=== PATIENT | female | born 1960 | race Caucasian/White ===

== ENCOUNTER 2019-12-04 01:13 | Inpatient (IN) | payer MEDICAID, SELFPAY ==
[2019-12-04] VITALS (8 sets, daily range): BP systolic 118–181; BP diastolic 72–124; PULSE 78–130; RESP 16–87; TEMP 36.6–36.9; O2SAT 90–98; BMI 24.1
[2019-12-04 01:33] LABS: Basophils % 0.5 %; Eosinophils # 0.2 10^3/uL (0.0-0.8); Eosinophils % 2.2 %; Hematocrit 41.2 % (37.0-47.0); Hemoglobin 13.2 g/dL (11.5-15.3); Lymphocytes # 2.1 10^3/uL (0.8-4.8); Mean Corpuscular Hemoglobin 28.9 pg (28.0-34.0); Mean Corpuscular Volume 90.2 fL (81-99); Mean Platelet Volume 8.7 fL (7.4-10.4); Monocytes # 0.7 10^3/uL (0.2-0.9); Monocytes % 8.7 %; Neutrophils # 4.6 10^3/uL (1.8-7.7); Neutrophils % 60.2 %; Nucleated Red Blood Cells % 0 %; Platelet Count 438 10^3/cmm (130-400); Red Blood Count 4.57 10^6/uL (4.1-5.3); Red Cell Distribution Width 12.5 % (12.1-15.1); White Blood Count 7.6 10^3/uL (4.0-10.0)
--- NOTE | 2019-12-04 01:48 | PC.NURSE ---
pt yelling and crying at this time. ' wants to leave this life and not come back'
--- NOTE | 2019-12-04 01:53 | PC.NURSE ---
pt states 'she wants to take her dog a .'
--- NOTE | 2019-12-04 01:57 | PC.NURSE ---
Patient changed into paper scrubs. House sup notified at this time.
[2019-12-04 01:58] LABS: Alanine Aminotransferase 22 U/L (0-33); Albumin Level 4.4 g/dL (3.5-5.2); Alkaline Phosphatase 97 IU/L (35-105); Anion Gap 18.8 (5-19); Aspartate Amino Transferase 24 U/L (0-32); Blood Urea Nitrogen 12 mg/dL (6-20); Calcium 10.3 mg/Dl (8.6-10.0); Carbon Dioxide 22 mmol/L (22-29); Chloride 99 mmol/L (98-107); Globulin 3.7 g/dL (1.3-4.6); Glomerular Filtration Rate 127.2 mL/min (90-130); Glucose 118 mg/dL (74-109); Potassium 3.8 mmol/L (3.5-5.1); Sodium 136 mmol/L (136-145); Thyroid Stimulating Hormone 1.49 uIU/mL (0.27-4.20); Total Bilirubin 0.3 mg/dL (0.15-1.2); Total Protein 8.1 g/dL (6.6-8.7)
--- NOTE | 2019-12-04 02:00 | PC.NURSE ---
pt states ' I knew not to talk to no body, I knew to just do it'
[2019-12-04 02:04] LABS: Acetaminophen < 5.0 ug/mL (10-30); Alcohol Level < 10 mg/dL (0-10); Salicylate < 0.3 mg/dL (3-10)
--- NOTE | 2019-12-04 02:16 | ED_ITS ---
Entered by Teena Laguna, acting as scribe for Chan Benavides DO Dec 04, 2019 01:13 HPI - Psych General: Chief Complaint: Psychiatric Symptoms Stated Complaint: SI Time Seen by Provider: 12/04/19 02:17 Source: patient and EMS Mode of arrival: EMS History of Present Illness: HPI Narrative: 59 y/o female presents to the ED with complaint of suicidal ideations. Pt states she has a hx of SI but this most recent episode started 1 week ago. Pt states she has not taken her psych medications since April 2019. She states she hates people because they are cruel and she hates herself. Pt states she has degenerative disk dz and she is constantly in pain. Pt states she has used meth and ETOH. MD complaint: suicidal ideation and feels depressed Onset (ago): week(s) (1) Duration: constant History of same: Yes Relieving factors: none Exacerbating factors: alcohol and drug use Context: recent drug abuse (Methamphetamines ) Associated psychiatric symptoms: depression and suicidal ideation Associated symptoms: Reports depression and suicidal ideation; Deny auditory hallucinations or visual hallucinations If self harm: admits thoughts of self harm and has plan Review of Systems Const: Denies: fever or chills Eyes: Denies: change in vision or blurry vision ENMT: Denies: painful swallowing, swelling of lips/tongue, bleeding gums, dental pain, Change in hearing, nose bleeds, post nasal drip or facial/sinus pain Card: Denies: chest pain, palpitations, irregular heart rhythm, edema, swelling of feet/ankles, shortness of breath on exertion or shortness of breath when lying down Resp: Reports: wheezing (bilaterally) GI: Denies: abdominal pain, nausea, vomiting, rectal pain, blood in stool or black tarry stool : Denies: painful urination, urinary frequency, urinary urgency or blood in urine Musc: Reports: neck pain; Denies: redness or joint warmth Skin/Breast: Denies: rash, itching or redness Neuro: Denies: headache, dizziness, vertigo, confusion or seizure-like activity Psych: Reports: anxiety, depression and suicidal ideation; Denies: visual hallucinations or auditory hallucinations PFSH ED PFSH: Statuses (acute, chronic, etc) shown below reflect problem list status as previously entered and may not be historically accurate Social History Smoking and tobacco status: current every day smoker Physical Exam Const: COMMON NORMALS: alert GENERAL APPEARANCE: well developed ORIENTATION/CONSCIOUSNESS: Yes awake, Yes oriented to person, Yes oriented to place and Yes oriented to time HENMT: COMMON NORMALS: normocephalic, external ears normal, external nose normal and moist oral mucous membranes HEAD & SCALP: normocephalic; no scalp tenderness FACE & SINUS: normal facial exam NOSE: external nose normal and no nasal discharge EXTERNAL EAR: Yes external ears normal MOUTH: tongue normal THROAT: posterior oropharynx normal; no peritonsillar mass Eye: COMMON NORMALS: PERRL, EOMs intact bilaterally and conjunctivae normal EYELID: eyelids normal CONJUNCTIVA: Yes conjunctivae normal PUPIL: Yes PERRL Neck/C-Spine: GENERAL: No tracheal deviation CERVICAL SPINE: Yes pain with cervical ROM Chest: COMMONS NORMALS: inspection of chest normal CHEST: Yes symmetrical chest wall rise and No tenderness Resp: EFFORT & INSPECTION: No tachypneic, No respiratory distress, No retractions, No uses accessory muscles and No tracheal deviation AUSCULTATION: no rhonchi and wheezes Cardio: COMMON NORMALS: regular rate and regular rhythm RATE: regular rate RHYTHM: regular rhythm HEART SOUNDS: no murmurs PERIPHERAL PULSES: radial pulses present GI: INSPECTION: No abdominal distension AUSCULTATION: No hyperactive bowel sounds and No hypoactive bowel sounds PALPATION: No tender, No guarding and No rigid PERCUSSION: no dullness to percussion and no tympanic to percussion : COMMON NORMALS: Yes no CVA tenderness BLADDER/KIDNEY EXAM: Yes no CVA tenderness Back/Pelvis: COMMON NORMALS: no CVA tenderness Neuro: SENSORIUM/ORIENTATION: Yes alert, Yes oriented to person, Yes oriented to place and Yes oriented to time Psych: COMMON NORMALS: mental status grossly normal and speech normal SPEECH: Yes normal speech Skin: GENERAL SKIN EXAM: other (evidence of IV use) MDM - Psych Lab Data: Labs: Lab Results 12/04/19 12/04/19 12/04/19 Range/Units 01:18 01:18 01:53 WBC 7.6 (4.0-10.0) 10^3/ uL RBC 4.57 (4.1-5.3) 10^6/u L Hgb 13.2 (11.5-15.3) g/dL Hct 41.2 (37.0-47.0) % MCV 90.2 (81-99) fL MCH 28.9 (28.0-34.0) pg MCHC 32.0 (30.0-36.0) g/dL RDW 12.5 (12.1-15.1) % Plt Count 438 H (130-400) 10^3/c mm MPV 8.7 (7.4-10.4) fL Neut % (Auto) 60.2 % Lymph % (Auto) 28.0 % Castro % (Auto) 8.7 % Eos % (Auto) 2.2 % Baso % (Auto) 0.5 % Neut # (Auto) 4.6 (1.8-7.7) 10^3/u L Lymph # (Auto) 2.1 (0.8-4.8) 10^3/u L Castro # (Auto) 0.7 (0.2-0.9) 10^3/u L Eos # (Auto) 0.2 (0.0-0.8) 10^3/u L Baso # (Auto) 0.0 (0.0-0.1) 10^3/u L Nucleated RBC % (a uto) 0 % Nucleated RBCs # 0.0 /100WBC Sodium 136 (136-145) mmol/L Potassium 3.8 (3.5-5.1) mmol/L Chloride 99 (98-107) mmol/L Carbon Dioxide 22 (22-29) mmol/L Anion Gap 18.8 (5-19) BUN 12 (6-20) mg/dL Creatinine 0.5 (0.5-0.9) mg/dL GFR Calculation 127.2 (90-130) mL/min Glucose 118 H (74-109) mg/dL Calcium 10.3 H (8.6-10.0) mg/Dl Total Bilirubin 0.3 (0.15-1.2) mg/dL AST 24 (0-32) U/L ALT 22 (0-33) U/L Alkaline Phosphata se 97 (35-105) IU/L Total Protein 8.1 (6.6-8.7) g/dL Albumin 4.4 (3.5-5.2) g/dL Globulin 3.7 (1.3-4.6) g/dL TSH 1.49 (0.27-4.20) uIU/ mL Urine Color Colorless (Yellow) Urine Appearance Sl cloudy A (CLEAR) Urine pH 5 (5-7) Ur Specific Gravit y 1.015 (1.005-1.030) Urine Protein Neg (Negative) Urine Glucose (UA) Norm (Normal) Urine Ketones Negative (Negative) Urine Occult Blood Neg (Negative) Urine Nitrate Negative (Negative) Urine Bilirubin Neg (NEGATIVE) Urine Urobilinogen 1 H (Negative) mg/dL Ur Leukocyte Ana ase Trace H (Negative) Urine RBC 0-4 H (0-2) /hpf Urine WBC 10-15 H (0-5) /hpf Ur Squamous Epith Cells 5-10 H (0-5) Urine Bacteria 2+ H (NONE) Salicylates < 0.3 L (3-10) mg/dL Urine Opiates Scre en (Negative) ng/mL Acetaminophen < 5.0 L (10-30) ug/mL Ur Barbiturates Sc reen (Negative) ng/mL Ur Phencyclidine S crn (Negative) ng/mL Ur Amphetamines Sc reen (Negative) ng/mL U Benzodiazepines Scrn (Negative) ng/mL Urine Cocaine Scre en (Negative) ng/mL U Marijuana (THC) Screen (Negative) ng/mL Ethyl Alcohol < 10 (0-10) mg/dL 12/04/19 Range/Units 01:53 WBC (4.0-10.0) 10^3/ uL RBC (4.1-5.3) 10^6/u L Hgb (11.5-15.3) g/dL Hct (37.0-47.0) % MCV (81-99) fL MCH (28.0-34.0) pg MCHC (30.0-36.0) g/dL RDW (12.1-15.1) % Plt Count (130-400) 10^3/c mm MPV (7.4-10.4) fL Neut % (Auto) % Lymph % (Auto) % Castro % (Auto) % Eos % (Auto) % Baso % (Auto) % Neut # (Auto) (1.8-7.7) 10^3/u L Lymph # (Auto) (0.8-4.8) 10^3/u L Castro # (Auto) (0.2-0.9) 10^3/u L Eos # (Auto) (0.0-0.8) 10^3/u L Baso # (Auto) (0.0-0.1) 10^3/u L Nucleated RBC % (a uto) % Nucleated RBCs # /100WBC Sodium (136-145) mmol/L Potassium (3.5-5.1) mmol/L Chloride (98-107) mmol/L Carbon Dioxide (22-29) mmol/L Anion Gap (5-19) BUN (6-20) mg/dL Creatinine (0.5-0.9) mg/dL GFR Calculation (90-130) mL/min Glucose (74-109) mg/dL Calcium (8.6-10.0) mg/Dl Total Bilirubin (0.15-1.2) mg/dL AST (0-32) U/L ALT (0-33) U/L Alkaline Phosphata se (35-105) IU/L Total Protein (6.6-8.7) g/dL Albumin (3.5-5.2) g/dL Globulin (1.3-4.6) g/dL TSH (0.27-4.20) uIU/ mL Urine Color (Yellow) Urine Appearance (CLEAR) Urine pH (5-7) Ur Specific Gravit y (1.005-1.030) Urine Protein (Negative) Urine Glucose (UA) (Normal) Urine Ketones (Negative) Urine Occult Blood (Negative) Urine Nitrate (Negative) Urine Bilirubin (NEGATIVE) Urine Urobilinogen (Negative) mg/dL Ur Leukocyte Ana ase (Negative) Urine RBC (0-2) /hpf Urine WBC (0-5) /hpf Ur Squamous Epith Cells (0-5) Urine Bacteria (NONE) Salicylates (3-10) mg/dL Urine Opiates Scre en Negative (Negative) ng/mL Acetaminophen (10-30) ug/mL Ur Barbiturates Sc reen Negative (Negative) ng/mL Ur Phencyclidine S crn Negative (Negative) ng/mL Ur Amphetamines Sc reen Positive H (Negative) ng/mL U Benzodiazepines Scrn Negative (Negative) ng/mL Urine Cocaine Scre en Negative (Negative) ng/mL U Marijuana (THC) Screen Positive H (Negative) ng/mL Ethyl Alcohol (0-10) mg/dL Discharge Plan Discharge Patient Disposition: Admitted As Inpatient Admit Provider: Salty Jerome Clinical Impression: Acute psychosis Condition: Stable Discharge Date/Time: 12/04/19 03:45 Coding Level of Care Code ED Software Project Lead for Irene Goodman The documentation recorded by the Jase malin Ashley, accurately reflects the service I personally performed and the decisions made by Kennedy terry Jeremy John, DO Dec 04, 2019 01:13
[2019-12-04 02:18] LABS: Add Urine Microscopic? YES; Bilirubin Urine Neg (NEGATIVE); Blood Urine Neg (Negative); Glucose Urine UA Norm (Normal); Ketones Urine Negative (Negative); Leukocyte Esterase Urine Trace (Negative); Nitrate Urine Negative (Negative); Protein Urine Neg (Negative); Specific Gravity, Urine 1.015 (1.005-1.030); Urine Color Colorless (Yellow); Urobilinogen Urine 1 mg/dL (Negative); pH Urine 5 (5-7)
[2019-12-04 02:19] LABS: Add Urine Culture? No; Bacteria Urine 2+; RBC Urine 0-4 /hpf (0-2)
[2019-12-04 02:21] LABS: Barbiturates Screen Urine Negative (Negative); Benzodiazepines Screen Urine Negative (Negative); Cocaine Screen Urine Negative (Negative); Opiate Screen Urine Negative (Negative); PCP Screen Urine Negative (Negative); THC Screen Urine Positive (Negative)
[2019-12-04] MEDS: LORazepam 2 mg/mL INJ 1 mL IM (02:38)
[2019-12-04 02:39] LABS: Amphetamines Screen Urine Positive (Negative)
--- NOTE | 2019-12-04 02:39 | PC.NURSE ---
patient agitated, advised dr painter, verbal order for ativan 2 mg IM now, verbal verification obtained
--- NOTE | 2019-12-04 08:30 | PC.ADMIT ---
[address] Admission Note: The patient,Dedra Melo,59 y/o, was given written information regarding hospital policies, unit procedures and contact persons. Patient's smoking status: current every day smoker. Vital Signs - 8 hr 12/04/19 01:13 12/04/19 03:43 12/04/19 04:04 Temperature 98.4 F 98.1 F 98.0 F Pulse Rate 78 Pulse Rate [Apical] 105 H 130 H Respiratory Rate 18 87 H 16 Blood Pressure 129/87 Blood Pressure [Left Arm] 181/124 118/72 Pulse Oximetry 92 90 98 12/04/19 04:12 12/04/19 06:00 Temperature 98.0 F 98.1 F Pulse Rate Pulse Rate [Apical] 130 H 89 Respiratory Rate 16 17 Blood Pressure Blood Pressure [Left Arm] 118/72 144/88 Pulse Oximetry 98 96
--- NOTE | 2019-12-04 12:17 | PM.NHP ---
Providers/Chief Complaint Admitting Physician: Salty Jerome MD Chief Complaint: SI HPI NPU History of Present Illness Dedra Melo is a 59 year old female who presents today reporting that she had a rough time the last 10 days. She reports that she is from this area or at least had been here for about a decade. She reports that she came here when she was 30 and left when she was about 40. She has grandchildren whom she has moved to be close to that took her out of the area. She had been struggling recently and a friend recommended that she moved back and that she could stay with that friend. Unfortunately when she got there she reports there was rapid drug use which was not conducive to her recovery and put her a really bad situation as she barely had the resources to get here and certainly does not have the resources to figure out the resolution to being here alone. She reports that she did use during this time, but that is not a direction she wants to go back to and it started causing her to feel depressed, suicidal and unclear as to how to move forward. She reports that this is probably the fifth hospitalization in her life with her first one occurring when she was about 20 years old. She answered many questions with I don't know and seemed fairly frazzled and confused at times. She does not recall the circumstances related to her admission when she was 20 years old. She endorses smoking cigarettes, drinking alcohol from time to time and smoking marijuana in addition to other drugs but denies ever having major swaths of her life that were lost to addiction. She reports that she has had medications in the past that were helpful. We discussed the risk benefits and alternatives of restarting 2 of those medications and she understood and agreed to proceed as documented in his note. Psychiatric history: As above. Substance abuse history: As above. UDS was positive for amphetamines and marijuana. Family history: She endorses mental health and addiction issues in her family. Developmental history: She denies any knowledge of any significant issues during her mom's or delivery with her. She reports that she learn to walk and talk to medical developmental milestones on time. She denies having speech therapy but did endorse having some learning difficulties. Psychosocial history: She reports that her parents were together when she was born. She endorses elevated split up at some point. She does have siblings. She reports that her childhood was tough at times. She did not graduate from high school nor did she get her GED. She endorses being heterosexual relationship for several years. She has a son and daughter. Her son is 30 and her daughters about 40. She also has grandchildren. She never been in the and she endorses being [employer]. She endorses that her longest job was about a year. She is currently homeless. Legal history: She reports that she has been in residential before for several days. Meds NPU Home Medications Medication Instructions Recorded Confirmed Type No Known Home Medications 12/04/19 12/04/19 History Allergies Allergy/AdvReac Type Severity Reaction Status Date / Time Penicillins Allergy ALGY-Swell Verified 12/04/19 01:27 Lip/Tongue/Throat PFSH NPU PFSH: Statuses (acute, chronic, etc) shown below reflect problem list status as previously entered and may not be historically accurate Social History Smoking and tobacco status: current every day smoker Mental Status Exam MSE Comments: This is a well-nourished well-developed older appearing white female with adequate dressed, grooming and eye contact. Some tremulousness. Otherwise no abnormal movements except for psychomotor retardation. Cooperative with exam in mild distress. Speech was decreased rate and volume and shaky. Mood described as depressed, affect congruent. Thought process organized. Thought content: Patient denied any homicidal ideation but did endorse having suicidal ideation, there were no delusions reported or noted, she denied any auditory or visual hallucinations. Attention and concentration were intact and memory appeared mostly reliable, but none were formally tested. She is alert and oriented ?3. Insight and judgment are limited. Vitals/I&O/Wt Last Vital Signs Temp 98.1 F 12/04/19 06:00 Pulse 89 12/04/19 06:00 Resp 17 12/04/19 06:00 BP 144/88 12/04/19 06:00 Pulse Ox 96 12/04/19 06:00 Weight last 48 hrs Weight 65.998 kg Weight 65.771 kg A&P Assessment and plan (1) Depressive disorder: This is a 59-year-old white female with a long history of mental health treatment and addiction who presents off of her medication with recent use with significant psychosocial challenges. 1. Continue current medications. Except: 2. Initiate Prozac 20 mg by mouth every morning and Abilify 10 mg by mouth every morning. 3. Encourage individual, group therapy. 4. Continue every 15 minute checks for safety. 5. Encourage discharge to sober living treatment/aftercare at the highest level of care to which she is willing to commit. Status: Acute Code(s): F32.9 - Major depressive disorder, single episode, unspecified (2) Methamphetamine addiction: Status: Acute Code(s): F15.20 - Other stimulant dependence, uncomplicated (3) Cannabis use disorder, moderate, dependence: Status: Acute Code(s): F12.20 - Cannabis dependence, uncomplicated Involuntary Hold Information 96 Hour Hold: 96 Hour Involuntary Admission: No Attestations NPU Medical Necessity Statement*: Inpatient hospitalization is medically necessary and the clinically appropriate intervention at this time. She will be in the hospital for over 2 midnights. We will initiate medications, monitor and titrate to effect. Likely length of stay 3-5 days. Coding Level of Care Code Acute Estate Manager for Irene Goodman Diagnoses Depressive disorder F32.9 Methamphetamine addiction F15.20 Cannabis use disorder, moderate, dependence F12.20
[2019-12-04] MEDS: fluoxetine 20 mg Capsule PO (15:12)
[2019-12-04] MEDS: ARIPiprazole 10 mg Tablet PO (15:12)
[2019-12-05 05:55] VITALS: BP 156/95; PULSE 86; RESP 16; TEMP 36.5; O2SAT 93
[2019-12-05] MEDS: fluoxetine 20 mg Capsule PO (08:19)
[2019-12-05] MEDS: ARIPiprazole 10 mg Tablet PO (08:19)
[2019-12-05] MEDS: acetaminophen 325 mg Tablet 650 MG PO (11:05)
--- NOTE | 2019-12-05 13:28 | PM.NPN ---
Subjective NPU Subjective: Interval history: Dedra presents today reporting she is feeling no specific side effects of the medication but she could not endorse feeling better. She was clearly upset and feeling some sort of way during the interview. She reports that she just does not know what to do. She is down here and she feels afraid to go home meaning the place that she is living here and feels that going back to where she is coming from was also not an option. She feels like she is between a rock and hard space. She reports that she is not sleeping great still feels really depressed. Mental Status Exam MSE Comments: This is a well-nourished well-developed older appearing white female with adequate dressed, grooming and eye contact. Some continued tremulousness. Otherwise no abnormal movements except for psychomotor retardation. Cooperative with exam in mild distress. Speech was decreased rate and volume. Mood described as depressed, affect congruent. Thought process organized. Thought content: Patient denied any homicidal ideation but did endorse having suicidal ideation, there were no delusions reported or noted, she denied any auditory or visual hallucinations. Attention and concentration were intact and memory appeared mostly reliable, but none were formally tested. She is alert and oriented ?3. Insight and judgment are limited. Vitals/I&O/Wt Last Vital Signs Temp 97.7 F 12/05/19 05:55 Pulse 86 12/05/19 05:55 Resp 16 12/05/19 05:55 BP 156/95 12/05/19 05:55 Pulse Ox 93 12/05/19 05:55 Weight last 48 hrs Weight 65.998 kg Weight 65.771 kg A&P Additional A&P Information Additional A&P Information: This is a 59-year-old white female with a long history of mental health treatment and addiction who presents off of her medication with recent use with significant psychosocial challenges. 1. Continue current medications. Except: 2. Consider increasing the Abilify to 15 mg by mouth every morning tomorrow or Thursday 3. Encourage individual, group therapy. 4. Continue every 15 minute checks for safety. 5. Encourage discharge to sober living treatment/aftercare at the highest level of care to which she is willing to commit. Involuntary Hold Information 96 Hour Hold: 96 Hour Involuntary Admission: No Attestations NPU Medical Necessity Statement*: Inpatient hospitalization is medically necessary and the clinically appropriate intervention at this time. We will monitor medications and titrate to effect. Likely length of stay 3-5 days. Coding Level of Care Code Acute Forensic Ballistics Expert for Irene Goodman
[2019-12-05 14:00] VITALS: BP 122/83; PULSE 107; RESP 18; TEMP 36.8; O2SAT 93
[2019-12-05 20:01] VITALS: BP 152/97; PULSE 92; RESP 16; TEMP 36.3; O2SAT 93
[2019-12-06] MEDS: acetaminophen 325 mg Tablet 650 MG PO ×2 (05:40→20:35)
[2019-12-06 05:55] VITALS: BP 136/87; PULSE 109; RESP 12; TEMP 36.7; O2SAT 95
[2019-12-06] MEDS: fluoxetine 20 mg Capsule PO (08:21)
[2019-12-06] MEDS: ARIPiprazole 10 mg Tablet PO (08:21)
--- NOTE | 2019-12-06 13:08 | PM.NPN ---
Subjective NPU Subjective: Interval history: Dedra was up and interactive for the first time in her hospitalization really less shaky and more engaging. She is agreeable to the increase in her Abilify to 15 mg after discussion of the risks, benefits and alternatives and she understood and agreed to proceed as is documented in this note. We discussed the possibility of increasing her Prozac in the next day or so. She reports that she is sleeping too much and that she is eating okay. Mental Status Exam MSE Comments: This is a well-nourished well-developed older appearing white female with adequate dressed, grooming and eye contact. With improvement in tremulousness. Otherwise no abnormal movements except for lessening psychomotor retardation. Cooperative with exam in mild distress. Speech was decreased rate and volume. Mood described as I'm here, affect congruent and less subdued. Thought process organized. Thought content: Patient denied any homicidal ideation but did endorse improvement in her suicidal ideation, there were no delusions reported or noted, she denied any auditory or visual hallucinations. Attention and concentration were intact and memory appeared reliable, but none were formally tested. She is alert and oriented ?3. Insight and judgment are improving. Vitals/I&O/Wt Last Vital Signs Temp 98.2 F 12/06/19 20:37 Pulse 84 12/06/19 20:37 Resp 19 H 12/06/19 20:37 BP 156/95 12/06/19 20:37 Pulse Ox 93 12/06/19 20:37 A&P Additional A&P Information This is a 59-year-old white female with a long history of mental health treatment and addiction who presents off of her medication with recent use with significant psychosocial challenges. 1. Continue current medications. Except: 2. Increase Abilify to 15 mg 3. Encourage individual, group therapy. 4. Continue every 15 minute checks for safety. 5. Encourage discharge to sober living treatment/aftercare at the highest level of care to which she is willing to commit. Involuntary Hold Information 96 Hour Hold: 96 Hour Involuntary Admission: No Attestations NPU Medical Necessity Statement*: Inpatient hospitalization is medically necessary and the clinically appropriate intervention at this time. We will monitor medications and titrate to effect. Likely length of stay 2-4 days. Coding Level of Care Code Acute Alligator Trapper for Irene Goodman
[2019-12-06 13:55] VITALS: BP 164/94; PULSE 78; RESP 20; TEMP 36.7; O2SAT 95
[2019-12-06] MEDS: ARIPiprazole 10 mg Tablet 5 MG PO (17:15)
[2019-12-06 20:37] VITALS: BP 156/95; PULSE 84; RESP 19; TEMP 36.8; O2SAT 93
--- NOTE | 2019-12-07 06:23 | PC.NURSE ---
RN Note: patient complained of having back pain. Sitting up in bed. Stated it was her lower back. Tylenol offered and patient stated she needed something stronger for her pain. Stated she did not want any tylenol or Ibuprofen. Laid back down. Will continue to monitor patient for safety and behavior via 15 minute checks.
[2019-12-07 06:29] VITALS: BP 166/106; PULSE 89; RESP 22; TEMP 36.6; O2SAT 97
[2019-12-07] MEDS: ARIPiprazole 30 mg Tablet 15 MG PO (08:39)
[2019-12-07] MEDS: fluoxetine 20 mg Capsule PO (08:39)
--- NOTE | 2019-12-07 11:38 | P.PN_ITS ---
Subjective NPU Subjective: Interval history: Dedra continues to she will increased activity and functionality. We discussed the possible increase in Prozac and the side of the hold at this point. She is tolerating the increase in the Abilify without issue. We began discussions about discharge. She is aware that this designer/writer will not be here tomorrow but that Dr. Feldman will be able to manage things working with the treatment team. She denied any significant issues and was open to the possibility of discharge tomorrow or in the next couple days. Mental Status Exam MSE Comments: This is a well-nourished well-developed older appearing white female with adequate dressed, grooming and eye contact. With improvement in tremulousness. Otherwise no abnormal movements except for improving psychomotor retardation. Cooperative with exam in no acute distress. Speech was more normal rate and volume. Mood described as better, affect congruent. Thought process organized. Thought content: Patient denied any suicidal or homicidal ideation, there were no delusions reported or noted, she denied any auditory or visual hallucinations. Attention and concentration were intact and memory appeared reliable, but none were formally tested. She is alert and oriented ?3. Insight and judgment are improving. Vitals/I&O/Wt Last Vital Signs Data NPU : 12/04/19 01:18 12/04/19 01:18 A&P Additional A&P Information This is a 59-year-old white female with a long history of mental health treatment and addiction who presents off of her medication with recent use with significant psychosocial challenges. 1. Continue current medications. 2. Encourage individual, group therapy. 3. Continue every 15 minute checks for safety. 4. Encourage discharge to sober living treatment/aftercare at the highest level of care to which she is willing to commit. Involuntary Hold Information 96 Hour Hold: 96 Hour Involuntary Admission: No Attestations NPU Medical Necessity Statement*: Inpatient hospitalization is medically necessary and the clinically appropriate intervention at this time. We will monitor medications and titrate to effect. Likely length of stay 1-3 days. Coding Level of Care Code Acute Rental Sales Associate for Irene Goodman
[2019-12-07 14:00] VITALS: BP 125/87; PULSE 102; RESP 18; TEMP 36.8; O2SAT 94
[2019-12-07] MEDS: acetaminophen 325 mg Tablet 650 MG PO (14:40)
[2019-12-07 19:53] VITALS: BP 149/89; PULSE 76; RESP 18; TEMP 36.5; O2SAT 94
[2019-12-08] MEDS: acetaminophen 325 mg Tablet 650 MG PO ×2 (02:21→12:06)
[2019-12-08 06:00] VITALS: BP 187/121; PULSE 92; RESP 20; TEMP 36.9; O2SAT 97
[2019-12-08] MEDS: fluoxetine 20 mg Capsule PO (08:30)
[2019-12-08] MEDS: ARIPiprazole 30 mg Tablet 15 MG PO (08:30)
--- NOTE | 2019-12-08 08:37 | P.PN_ITS ---
Subjective NPU Subjective: Interval history: Dedra was up and interactive for the first time in her hospitalization really less shaky and more engaging. She is agreeable to the increase in her Abilify to 15 mg after discussion of the risks, benefits and alternatives and she understood and agreed to proceed as is documented in this note. We discussed the possibility of increasing her Prozac in the next day or so. She reports that she is sleeping too much and that she is eating okay. Mental Status Exam MSE Comments: This is a well-nourished well-developed older appearing white female with adequate dressed, grooming and eye contact. With improvement in tremulousness. Otherwise no abnormal movements except for lessening psychomotor retardation. Cooperative with exam in mild distress. Speech was decreased rate and volume. Mood described as I'm here, affect congruent and less subdued. Thought process organized. Thought content: Patient denied any homicidal ideation but did endorse improvement in her suicidal ideation, there were no delusions reported or noted, she denied any auditory or visual hallucinations. Attention and concentration were intact and memory appeared reliable, but none were formally tested. She is alert and oriented ?3. Insight and judgment are improving. Cognition: Patient Appearance: Appears Older than Age and Disheveled/Poor Hygiene Level of Consciousness: Awake, Alert, Appropriate and Follows Commands Patient Cognition Impaired: No Ability to Follow Directions: Excellent Patient Orientation (long list): Person and Place Comprehension Ability: No Impairment Hallucination Type: None Delusion Description: Not Present Thought Process: Appropriate Affect: Affect Description: Anxious Depressive Symptoms: Crying Spells, Difficulty Sleeping, Feelings of Worthlessness, Hopelessness, Insomnia, Loss of Interest in Activities, Low Self Esteem, Recurrent Thoughts of or Suicide and Unhappiness Behavior: Patient Behavior: Appropriate Speech Pattern: Appropriate and Clear Vitals/I&O/Wt Last Vital Signs Temp 98.5 F 12/08/19 06:00 Pulse 92 12/08/19 06:00 Resp 20 H 12/08/19 06:00 BP 187/121 12/08/19 06:00 Pulse Ox 97 12/08/19 06:00 A&P Assessment and plan (1) Depressive disorder: This is a 59-year-old white female with a long history of mental health treatment and addiction who presents off of her medication with recent use with significant psychosocial challenges. 1. Continue current medications. Except: 2. Initiate Prozac 20 mg by mouth every morning and Abilify 10 mg by mouth every morning. 3. Encourage individual, group therapy. 4. Continue every 15 minute checks for safety. 5. Encourage discharge to sober living treatment/aftercare at the highest level of care to which she is willing to commit. Status: Acute Code(s): F32.9 - Major depressive disorder, single episode, unspecified (2) Methamphetamine addiction: Status: Acute Code(s): F15.20 - Other stimulant dependence, uncomplicated (3) Cannabis use disorder, moderate, dependence: Status: Acute Code(s): F12.20 - Cannabis dependence, uncomplicated Additional A&P Information This is a 59-year-old white female with a long history of mental health treatment and addiction who presents off of her medication with recent use with significant psychosocial challenges. 1. Continue current medications. Except: 2. Increase Abilify to 15 mg 3. Encourage individual, group therapy. 4. Continue every 15 minute checks for safety. 5. Encourage discharge to sober living treatment/aftercare at the highest level of care to which she is willing to commit. 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
[2019-12-08 14:00] VITALS: BP 139/96; PULSE 122; RESP 18; TEMP 36.7; O2SAT 96
[2019-12-08 15:53] VITALS: BP 129/87; PULSE 78; RESP 18; TEMP 36.7; O2SAT 96
[2019-12-08 16:12] VITALS: BP 129/87; PULSE 78; RESP 18; TEMP 36.7; O2SAT 96
--- NOTE | 2019-12-08 17:16 | PM.NDC ---
Diagnoses at Discharge Discharge Diagnosis (1) Depressive disorder: Status: Acute Problem details: Dedra Melo is a 59 year old female who presents today reporting that she had a rough time the last 10 days. She reports that she is from this area or at least had been here for about a decade. She reports that she came here when she was 30 and left when she was about 40. She has grandchildren whom she has moved to be close to that took her out of the area. She had been struggling recently and a friend recommended that she moved back and that she could stay with that friend. Unfortunately when she got there she reports there was rapid drug use which was not conducive to her recovery and put her a really bad situation as she barely had the resources to get here and certainly does not have the resources to figure out the resolution to being here alone. She reports that she did use during this time, but that is not a direction she wants to go back to and it started causing her to feel depressed, suicidal and unclear as to how to move forward. She reports that this is probably the fifth hospitalization in her life with her first one occurring when she was about 20 years old. She answered many questions with I don't know and seemed fairly frazzled and confused at times. She does not recall the circumstances related to her admission when she was 20 years old. She endorses smoking cigarettes, drinking alcohol from time to time and smoking marijuana in addition to other drugs but denies ever having major swaths of her life that were lost to addiction. She reports that she has had medications in the past that were helpful. We discussed the risk benefits and alternatives of restarting 2 of those medications and she understood and agreed to proceed as documented in his note. Psychiatric history: As above. Substance abuse history: As above. UDS was positive for amphetamines and marijuana. Family history: She endorses mental health and addiction issues in her family. Developmental history: She denies any knowledge of any significant issues during her mom's or delivery with her. She reports that she learn to walk and talk to medical developmental milestones on time. She denies having speech therapy but did endorse having some learning difficulties. Psychosocial history: She reports that her parents were together when she was born. She endorses elevated split up at some point. She does have siblings. She reports that her childhood was tough at times. She did not graduate from high school nor did she get her GED. She endorses being heterosexual relationship for several years. She has a son and daughter. Her son is 30 and her daughters about 40. She also has grandchildren. She never been in the and she endorses being Rastafarian. She endorses that her longest job was about a year. She is currently homeless. Legal history: She reports that she has been in [facility] before for several days. Social History Smoking and tobacco status: current every day smoker A&P Assessment and plan (1) Depressive disorder: This is a 59-year-old white female with a long history of mental health treatment and addiction who presents off of her medication with recent use with significant psychosocial challenges. 1. Continue current medications. Except: 2. Initiate Prozac 20 mg by mouth every morning and Abilify 10 mg by mouth every morning. 3. Encourage individual, group therapy. 4. Continue every 15 minute checks for safety. 5. Encourage discharge to sober living treatment/aftercare at the highest level of care to which she is willing to commit. Status: Acute Code(s): F32.9 - Major depressive disorder, single episode, unspecified (2) Methamphetamine addiction: Status: Acute Code(s): F15.20 - Other stimulant dependence, uncomplicated (3) Cannabis use disorder, moderate, dependence: Status: Acute Code(s): F12.20 - Cannabis dependence, uncomplicated (2) Methamphetamine addiction: Status: Acute (3) Cannabis use disorder, moderate, dependence: Status: Acute Reason for Visit Reason for Visit: Reason For Visit: SI Hospital Course Hospital Course Patient was admitted to the neuropsychiatric unit and placed in a supportive environment with 24 hour monitoring. Staff provided opportunities for individual therapy. She received a psychiatric evaluation and medication adjustments were made under the guidance of Salty Jerome M.D. I'll tolerated and at the time of discharge she was free of side effects by her report. Involuntary Hold Information 96 Hour Hold: 96 Hour Involuntary Admission: No Mental Status Exam MSE Comments: Mental Status Exam MSE Comments: This is a well-nourished well-developed older appearing white female with adequate dressed, grooming and eye contact. Some tremulousness. Otherwise no abnormal movements except for psychomotor retardation. Cooperative with exam in mild distress. Speech was decreased rate and volume and shaky. Mood described as depressed, affect congruent. Thought process organized. Thought content: Patient denied any homicidal ideation but did endorse having suicidal ideation, there were no delusions reported or noted, she denied any auditory or visual hallucinations. Attention and concentration were intact and memory appeared mostly reliable, but none were formally tested. She is alert and oriented ?3. Insight and judgment are limited. Discharge Data Vitals: Last Vital Signs Temp 98.0 F 12/08/19 16:12 Pulse 78 12/08/19 16:12 Resp 18 12/08/19 16:12 BP 129/87 12/08/19 16:12 Pulse Ox 96 12/08/19 16:12 Discharge Plan Discharge Patient Disposition: Home, Self-Care Condition: Stable Prescriptions: New trazodone 50 mg Tablet 50 mg PO BEDTIME PRN (Reason: Sleep) Qty: 20 RF: 3 fluoxetine 20 mg Capsule 20 mg PO DAILY Qty: 30 RF: 3 aripiprazole 30 mg Tablet 15 mg PO DAILY Qty: 15 RF: 3 ibuprofen 200 mg capsule 200 mg PO Q4H PRN (Reason: pain) Qty: 60 RF: 3 Discharge Orders: Discharge Order (Routine); Ordered 12/08/19 Ordered By: Vahid Feldman Discharge Diet: Regular Discharge Activity: Increase activity as tolerated Patient Instructions: Ibuprofen (By mouth), Fluoxetine (By mouth), Trazodone (By mouth), Aripiprazole (By mouth) Activity Restrictions/Additional Instructions: For outpatient mental health services: [facility] [address] [address] Thursday 8:00 AM - 5:00 PM Thursday 8:00 AM - 5:00 PM Thursday 8:00 AM - 5:00 PM 8:00 AM - 5:00 PM Thursday 8:00 AM - 5:00 PM Thursday Closed Thursday Closed Discharge Attestations NPU Time Spent in Discharge Care*: greater than 30 min Specific Discharge Activities: Other discharge activites (optional): Regular diet with daily exercise Status at Discharge: Overall status at discharge: other (Patient met discharge criteria of being stable oon medications and free of imminent risk to self or others. 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 Fwd Diagnoses Depressive disorder F32.9 Methamphetamine addiction F15.20 Cannabis use disorder, moderate, dependence F12.20
== END 2019-12-08 19:50 | disposition home or self-care (01) | DRG 881 ==
LOC: ER 03:05 → NP 03:31
PROVIDERS: Admitting Provider Psychiatry & Neurology Psychiatry; Emergency Provider Emergency Medicine; Visit Provider Psychiatry & Neurology Psychiatry
DX: F32.9 Major depressive disorder, single episode, unspecified (principal); R45.851 Suicidal ideations; F15.20 Other stimulant dependence, uncomplicated; F17.210 Nicotine dependence, cigarettes, uncomplicated; Z59.0 Homelessness; F12.20 Cannabis dependence, uncomplicated
CPT/HCPCS: 12345; 80053; 80307; 81003; 84443; 85025; 96372; 99284; J2060

== ENCOUNTER 2019-12-04 01:13 | Emergency (ER) | payer MEDICAID, SELFPAY | END 2019-12-04 03:45 | disposition admitted as inpatient to this hospital (09) | LOC: ER 01-06 10:47 | PROVIDERS: Emergency Provider Emergency Medicine | DX: F23 Brief psychotic disorder (principal); F17.210 Nicotine dependence, cigarettes, uncomplicated; F10.10 Alcohol abuse, uncomplicated; F19.10 Other psychoactive substance abuse, uncomplicated | CPT/HCPCS: 80053; 80307; 81003; 84443; 85025; 96372; 99284; 99285; J2060 ==

== ENCOUNTER 2020-05-13 20:46 | Emergency (ER) | payer MEDICAID, SELFPAY ==
[2020-05-13] VITALS (7 sets, daily range): BP systolic 98–114; BP diastolic 58–82; PULSE 83–105; RESP 16–18; TEMP 36.4–36.9; O2SAT 93–95; BMI 24.4
--- NOTE | 2020-05-13 21:19 | XR_ITS ---
WS: [id number] PORTABLE CHEST HISTORY: cp COMPARISON: None available. Hyperinflated lungs with emphysema. Normal vasculature. No pneumonia. No pleural effusion or pneumoth orax. Cardiac size: Normal. Mediastinum/Aorta: Normal mediastinum. Prior anterior cervical fusion. XR/XR chest 1V portable [id number] IMPRESSION: Chronic emphysema. No pneumonia.
--- NOTE | 2020-05-13 21:20 | ECG_ITS ---
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 Measurements Intervals [place] Rate: 93 P: 64 WV: 161 QRS: 72 QRSD: 78 T: 78 QT: 337 QTc: 420 Interpretive Statements SINUS RHYTHM No previous ECG available for comparison Electronically Signed On 05-14-2020 18:29:54 CDT by Chantelle Posey M.D. [id number]
[2020-05-13 21:30] LABS: Basophils # 0.1 10^3/uL (0.0-0.1); Basophils % 0.7 %; Eosinophils # 0.6 10^3/uL (0.0-0.8); Eosinophils % 5.8 %; Hematocrit 43.7 % (37.0-47.0); Lymphocytes # 3.4 10^3/uL (0.8-4.8); Lymphocytes % 35.4 %; Mean Corpuscular Hemoglobin 30.3 pg (28.0-34.0); Mean Corpuscular Volume 94.6 fL (81-99); Mean Platelet Volume 9.5 fL (7.4-10.4); Monocytes # 0.8 10^3/uL (0.2-0.9); Monocytes % 8.7 %; Neutrophils # 4.7 10^3/uL (1.8-7.7); Nucleated Red Blood Cells % 0 %; Platelet Count 342 10^3/cmm (130-400); Red Blood Count 4.62 10^6/uL (4.1-5.3); Red Cell Distribution Width 13.2 % (12.1-15.1); White Blood Count 9.5 10^3/uL (4.0-10.0)
[2020-05-13 21:48] LABS: Troponin(5th) Baseline 6 ng/L (0-10)
[2020-05-13 21:55] LABS: Alanine Aminotransferase 20 U/L (0-33); Alcohol Level < 10 mg/dL (0-10); Alkaline Phosphatase 85 IU/L (35-105); Anion Gap 16.6 (5-19); Aspartate Amino Transferase 19 U/L (0-32); Blood Urea Nitrogen 21 mg/dL (6-20); Calcium 9.7 mg/dL (8.5-10.5); Carbon Dioxide 27 mmol/L (22-29); Chloride 99 mmol/L (98-107); Globulin 3.2 g/dL (1.3-4.6); Glomerular Filtration Rate 73.9 mL/min (90-130); Glucose 123 mg/dL (65-115); NT Pro B Type Natriuretic Pept 20 pg/mL (0-125); Osmolality Calculated 284 mOsm/kg (285-295); Potassium 4.6 mmol/L (3.5-5.1); Sodium 138 mmol/L (136-145); Total Bilirubin 0.2 mg/dL (0.15-1.2); Total Protein 7.2 g/dL (6.6-8.7)
[2020-05-13 21:59] LABS: Amphetamines Screen Urine Negative (Negative); Barbiturates Screen Urine Negative (Negative); Benzodiazepines Screen Urine Negative (Negative); Cocaine Screen Urine Negative (Negative); Opiate Screen Urine Negative (Negative); PCP Screen Urine Negative (Negative); THC Screen Urine Negative (Negative)
[2020-05-13 22:10] LABS: Add Urine Microscopic? YES; Bilirubin Urine Neg (NEGATIVE); Blood Urine Neg (Negative); Glucose Urine UA Norm (Normal); Ketones Urine Negative (Negative); Leukocyte Esterase Urine Trace (Negative); Nitrate Urine Negative (Negative); Protein Urine Neg (Negative); Specific Gravity, Urine 1.005 (1.005-1.030); Urine Appearance Clear (CLEAR); Urine Color Straw (Yellow); Urobilinogen Urine Norm (Negative); pH Urine 6 (5-7)
[2020-05-13 22:13] LABS: Add Urine Culture? No; Bacteria Urine TRACE; RBC Urine 0-4 /hpf (0-2); Squamous Epithelial Cell Urine 0-4 (0-5); WBC Urine 0-4 /hpf (0-5)
[2020-05-13] MEDS: acetaminophen 325 mg Tablet 650 MG PO (22:42)
--- NOTE | 2020-05-13 22:50 | W.ED.GENADLT ---
HPI - General Adult General: Chief complaint: General Medical Stated complaint: high blood pressure/ possible bronchitis Time Seen by Provider: 05/13/20 21:06 History of Present Illness: HPI narrative: 59-year-old lady presents after an episode of chest discomfort at home. She does not complain of shortness of breath, but noted that she had pain between her shoulders and up into her neck as well as in her chest. No increased cough. No increased fever. She checked her blood pressure and it was very high she had some dizziness and blurry vision transiently as well. Her symptoms is essentially resolved. They seem to get better after breathing treatment in the ambulance on the way here, as the ambulance crew noticed that she was quite wheezy. Onset (ago): hour(s) Location: chest and back Radiation: non-radiation Severity: moderate Quality: aching and crushing Pain Consistency: constant Relieving factors: none Exacerbating factors: none Associated symptoms: Reports chest pain and headache(s); Deny dyspnea, fevers/chills, nausea, rash, syncope or vomiting Review of Systems Const: Denies: fever(s) or chills Eyes: Reports: blurry vision; Denies: change in vision ENMT: Denies: bleeding gums, change in hearing or sinus pain Card: Reports: chest pain; Denies: syncope Resp: Denies: dyspnea GI: Denies: nausea or vomiting : Denies: dysuria or hematuria Musc: Reports: neck pain and back pain; Denies: joint redness or joint warmth Skin/Breast: Denies: rash, pruritus or erythema Neuro: Reports: headache(s) Psych: Denies: anxiety PFSH ED PFSH: Social History Smoking and tobacco status: current every day smoker Physical Exam Const: GENERAL APPEARANCE: well developed ORIENTATION/CONSCIOUSNESS: Yes oriented to person, Yes oriented to place and Yes oriented to time HENMT: COMMON NORMALS: external ears normal and Normal external nose present FACE & SINUS: normal facial exam NOSE: Normal external nose present and No nasal discharge present EXTERNAL EAR: Yes external ears normal MOUTH: tongue normal TEETH & GINGIVA: no abnormal tooth and associated gingiva THROAT: no peritonsillar mass Eye: COMMON NORMALS: Equal, round and reactive pupils present, EOMs intact bilaterally and conjunctivae normal EYELID: eyelids normal CONJUNCTIVA: Yes conjunctivae normal PUPIL: Yes Equal, round and reactive pupils present Neck/C-Spine: GENERAL: No tracheal deviation CERVICAL SPINE: No Cervical spine tenderness Chest: COMMONS NORMALS: normal inspection of the chest Resp: COMMON NORMALS: negative for clear to auscultation bilaterally EFFORT & INSPECTION: No tachypneic, No respiratory distress, No retractions, No uses accessory muscles and No tracheal deviation AUSCULTATION: not clear to auscultation bilaterally, rhonchi, wheezes and lung sounds not diminished Cardio: COMMON NORMALS: regular rate and regular rhythm RATE: regular rate RHYTHM: regular rhythm HEART SOUNDS: no murmurs PERIPHERAL PULSES: radial pulses present GI: INSPECTION: No abdominal distension AUSCULTATION: No Hyperactive bowel sounds present and No Hypoactive bowel sounds present PALPATION: No Guarding due to palpation present (GI) and No Rigid due to palpation PERCUSSION: no dullness to percussion and no tympanic to percussion Neuro: SENSORIUM/ORIENTATION: Yes oriented to person, Yes oriented to place and Yes oriented to time Psych: COMMON NORMALS: mental status grossly normal Skin: COMMON NORMALS: no rashes or lesions noted GENERAL SKIN EXAM: no rashes or lesions noted Course Vital Signs: Vital signs: Vital Signs Temperature 98.4 F 05/13/20 20:56 Pulse Rate 85 05/13/20 23:44 Respiratory Rate 18 05/13/20 23:44 Blood Pressure 104/72 05/13/20 23:44 Pulse Oximetry 94 05/13/20 23:44 MDM - General Adult MDM Narrative: Medical decision making narrative: 59-year-old lady with chest discomfort, now resolved. She was hypertensive at home, this is now resolved. Her blood pressure is 112/76. Her heart rate sinus 80. Oxygen saturations are 93% on room air. She is very wheezy. He was given a breathing treatment on the way here here. This did seem to help her chest discomfort, and the paresthesias she got into her arm. Her EKG shows a sinus rhythm without ST change. Her first troponin is negative. Her BNP is negative as well. Her chest x-ray shows mildly expanded lungs without acute change I wonder if she was anxious with the pain, that may have been related to airway spasm. Second troponin is negative, and did not elevate. She will be allowed home. She will be treated for the wheezing. Her blood pressure remains 100/60. Lab Data: Labs: Lab Results 05/13/20 05/13/20 05/13/20 Range/Units 21:23 21:23 21:23 WBC 9.5 (4.0-10.0) 10^3/ uL RBC 4.62 (4.1-5.3) 10^6/u L Hgb 14.0 (11.5-15.3) g/dL Hct 43.7 (37.0-47.0) % MCV 94.6 (81-99) fL MCH 30.3 (28.0-34.0) pg MCHC 32.0 (30.0-36.0) g/dL RDW 13.2 (12.1-15.1) % Plt Count 342 (130-400) 10^3/c mm MPV 9.5 (7.4-10.4) fL Neut % (Auto) 49.0 % Lymph % (Auto) 35.4 % Thomas % (Auto) 8.7 % Eos % (Auto) 5.8 % Baso % (Auto) 0.7 % Neut # (Auto) 4.7 (1.8-7.7) 10^3/u L Lymph # (Auto) 3.4 (0.8-4.8) 10^3/u L Thomas # (Auto) 0.8 (0.2-0.9) 10^3/u L Eos # (Auto) 0.6 (0.0-0.8) 10^3/u L Baso # (Auto) 0.1 (0.0-0.1) 10^3/u L Nucleated RBC % (a uto) 0 % Nucleated RBCs # 0.0 /100WBC Sodium 138 (136-145) mmol/L Potassium 4.6 (3.5-5.1) mmol/L Chloride 99 (98-107) mmol/L Carbon Dioxide 27 (22-29) mmol/L Anion Gap 16.6 (5-19) BUN 21 H (6-20) mg/dL Creatinine 0.8 (0.5-0.9) mg/dL GFR Calculation 73.9 L (90-130) mL/min Glucose 123 H (65-115) mg/dL Calculated Osmolal ity 284 L (285-295) mOsm/k g Calcium 9.7 (8.5-10.5) mg/dL Total Bilirubin 0.2 (0.15-1.2) mg/dL AST 19 (0-32) U/L ALT 20 (0-33) U/L Alkaline Phosphata se 85 (35-105) IU/L Troponin T Baselin e 6 (0-10) ng/L Troponin T 120 Min [place] (0-10) ng/L NT-Pro-B Natriuret Pep 20 (0-125) pg/mL Total Protein 7.2 (6.6-8.7) g/dL Albumin 4.0 (3.5-5.2) g/dL Globulin 3.2 (1.3-4.6) g/dL Urine Color (Yellow) Urine Appearance (CLEAR) Urine pH (5-7) Ur Specific Gravit y (1.005-1.030) Urine Protein (Negative) Urine Glucose (UA) (Normal) Urine Ketones (Negative) Urine Blood (Negative) Urine Nitrate (Negative) Urine Bilirubin (NEGATIVE) Urine Urobilinogen (Negative) mg/dL Ur Leukocyte Ana ase (Negative) Urine RBC (0-2) /hpf Urine WBC (0-5) /hpf Ur Squamous Epith Cells (0-5) Urine Bacteria (NONE) Urine Opiates Scre en (Negative) ng/mL Ur Barbiturates Sc reen (Negative) ng/mL Ur Phencyclidine S crn (Negative) ng/mL Ur Amphetamines Sc reen (Negative) ng/mL U Benzodiazepines Scrn (Negative) ng/mL Urine Cocaine Scre en (Negative) ng/mL U Marijuana (THC) Screen (Negative) ng/mL Ethyl Alcohol < 10 (0-10) mg/dL 05/13/20 05/13/20 05/13/20 Range/Units 21:35 21:35 23:26 WBC (4.0-10.0) 10^3/ uL RBC (4.1-5.3) 10^6/u L Hgb (11.5-15.3) g/dL Hct (37.0-47.0) % MCV (81-99) fL MCH (28.0-34.0) pg MCHC (30.0-36.0) g/dL RDW (12.1-15.1) % Plt Count (130-400) 10^3/c mm MPV (7.4-10.4) fL Neut % (Auto) % Lymph % (Auto) % Thomas % (Auto) % Eos % (Auto) % Baso % (Auto) % Neut # (Auto) (1.8-7.7) 10^3/u L Lymph # (Auto) (0.8-4.8) 10^3/u L Thomas # (Auto) (0.2-0.9) 10^3/u L Eos # (Auto) (0.0-0.8) 10^3/u L Baso # (Auto) (0.0-0.1) 10^3/u L Nucleated RBC % (a uto) % Nucleated RBCs # /100WBC Sodium (136-145) mmol/L Potassium (3.5-5.1) mmol/L Chloride (98-107) mmol/L Carbon Dioxide (22-29) mmol/L Anion Gap (5-19) BUN (6-20) mg/dL Creatinine (0.5-0.9) mg/dL GFR Calculation (90-130) mL/min Glucose (65-115) mg/dL Calculated Osmolal ity (285-295) mOsm/k g Calcium (8.5-10.5) mg/dL Total Bilirubin (0.15-1.2) mg/dL AST (0-32) U/L ALT (0-33) U/L Alkaline Phosphata se (35-105) IU/L Troponin T Baselin e (0-10) ng/L Troponin T 120 Min [place] 6.00 (0-10) ng/L NT-Pro-B Natriuret Pep (0-125) pg/mL Total Protein (6.6-8.7) g/dL Albumin (3.5-5.2) g/dL Globulin (1.3-4.6) g/dL Urine Color Straw (Yellow) Urine Appearance Clear (CLEAR) Urine pH 6 (5-7) Ur Specific Gravit y 1.005 (1.005-1.030) Urine Protein Neg (Negative) Urine Glucose (UA) Norm (Normal) Urine Ketones Negative (Negative) Urine Blood Neg (Negative) Urine Nitrate Negative (Negative) Urine Bilirubin Neg (NEGATIVE) Urine Urobilinogen Norm (Negative) mg/dL Ur Leukocyte Ana ase Trace H (Negative) Urine RBC 0-4 H (0-2) /hpf Urine WBC 0-4 H (0-5) /hpf Ur Squamous Epith Cells 0-4 H (0-5) Urine Bacteria Trace (NONE) Urine Opiates Scre en Negative (Negative) ng/mL Ur Barbiturates Sc reen Negative (Negative) ng/mL Ur Phencyclidine S crn Negative (Negative) ng/mL Ur Amphetamines Sc reen Negative (Negative) ng/mL U Benzodiazepines Scrn Negative (Negative) ng/mL Urine Cocaine Scre en Negative (Negative) ng/mL U Marijuana (THC) Screen Negative (Negative) ng/mL Ethyl Alcohol (0-10) mg/dL Discharge Plan Discharge Patient Disposition: Home, Self-Care Clinical Impression: Acute bronchitis Qualifiers: Bronchitis organism: unspecified organism Qualified Code(s): J20.9 - Acute bronchitis, unspecified Condition: Stable Prescriptions: New albuterol sulfate 90 mcg/actuation HFA aerosol inhaler 1 inh INHALATION QID PRN (Reason: shortness of breath or wheezing) Qty: 8.5 RF: 0 doxycycline hyclate 100 mg capsule 100 mg PO BID 7 Days Qty: 14 RF: 0 Medrol (Andriy) 4 mg tablets,dose pack See Rx Instructions .ROUTE .COMPLEX Qty: 21 RF: 0 Discharge Orders: Discharge Order (Routine); Ordered 05/14/20 Ordered By: Chan Benavides Referrals: Chad Lopez FNP [Primary Care Provider] - 4-7 days Discharge Diet: Advance as tolerated Discharge Activity: Increase activity as tolerated Patient Instructions: Bronchitis (Acute) - Adult, Bronchospasm (ED) Activity Restrictions/Additional Instructions: Return for return of chest discomfort, problems with your blood pressure, shortness of breath, other concerning symptoms. Medications as directed Coding Level of Care Code ED Secretarial Teacher for Genevag Fwd Exam Comprehensive
--- NOTE | 2020-05-13 23:20 | ECG_ITS ---
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 Measurements Intervals [place] Rate: 82 P: 74 [place]: 175 QRS: 70 QRSD: 81 T: 78 QT: 365 QTc: 429 Interpretive Statements SINUS RHYTHM Compared to ECG 05/13/2020 21:35:55 No significant changes Electronically Signed On 05-14-2020 18:38:46 CDT by Chantelle Posey M.D. [id number]
[2020-05-13 23:54] LABS: Troponin 5 2HR Delta 0 ABS# (0-10)
[2020-05-14 00:29] VITALS: BP 98/59; PULSE 77; RESP 18; O2SAT 95
== END 2020-05-14 00:30 | disposition home or self-care (01) ==
PROVIDERS: Emergency Provider Emergency Medicine; PCP Nurse Practitioner Family
DX: J20.9 Acute bronchitis, unspecified (principal); F17.210 Nicotine dependence, cigarettes, uncomplicated
CPT/HCPCS: 12345; 71045; 80053; 80306; 80307; 81001; 83880; 84484; 85025; 93005; 96374; 99284; J2930